=== PATIENT | female | born 1950 | race Caucasian/White ===

== ENCOUNTER 2024-09-11 12:56 | Outpatient (AMB) | payer MEDICARE, MEDICAID, SELFPAY ==
--- NOTE | 2024-09-11 12:58 | MHC.OFFVIS ---
Vital Signs 09/11/24 14:00 Height 5 ft 4 in Weight 178 lb 9.191 oz BMI 30.6 BP 158/69 H Blood Pressure Location Lt brachial Position Sitting Pulse 82 Intake Visit Reasons: Remove cuff from subcutaneous tissue Intake Note: Patient is seen in office to discuss removal of cuff. Pt c/o: had catherer removed however cuff was not visible at time and was refer to surgeon, states area is healed and clean Plasterer Foreman Required: Yes Plasterer Foreman Language: Mexican Plasterer Foreman Services: Plasterer Foreman Offered & Declined (Well Service Floor Worker ) Allergies menthol Allergy (Mild, Verified 09/11/24 13:09) chocking Medication List - Last Reconciled 09/11/24 by Tylor Albrecht MD acetaminophen 500 mg PO Q6H PRN allopurinol 100 mg PO DAILY amlodipine 10 mg PO DAILY amoxicillin-pot clavulanate 500-125 mg (Augmentin) 1 tab PO Q12H apixaban 5 mg PO BID apixaban (Eliquis) 5 mg PO BID ascorbic acid (vitamin C) 250 mg PO DAILY aspirin 81 mg PO DAILY blood-glucose meter (Contour Next Gen Meter) As directed blood-glucose,brim cutter,cont ([employer] Installation Engineer) As directed calcium carbonate 500 mg PO DAILY cyanocobalamin (vitamin B-12) 1,000 mcg PO DAILY famotidine 20 mg PO DAILY fluconazole 200 mg PO DAILY magnesium oxide 400 mg PO DAILY metoprolol succinate ER 25 mg PO DAILY pregabalin (Lyrica) 25 mg PO TID rosuvastatin 10 mg PO DAILY torsemide 20 mg PO DAILY valsartan 40 mg PO BID HPI Comments Details: 74-year-old female patient presenting with a retained vascular cuff following removal of a dialysis catheter in the right chest wall. The cuff was described as being palpable below the skin approximately 2 cm above the insertion site. The patient denies any ongoing symptoms related to this cuff and denies any bleeding or discharge from the insertion site. She presents today for removal of this cuff. [facility] Medical History (Updated 09/11/24 @ 14:07 by Tylor Albrecht MD) Vertigo TIA (transient ischemic attack) Paroxysmal atrial fibrillation Hypothyroidism Diabetes mellitus Hypertension End stage renal disease Gout Chronic diastolic congestive heart failure Asthma Anemia Surgical History (Updated 09/11/24 @ 14:06 by Tylor Albrecht MD) History of transmetatarsal amputation of left foot Review of Systems Const Unobtainable due to mental condition Physical Exam Const General: no acute distress Nutritional Appearance: well nourished Orientation/consciousness: patient oriented x3 Limitations: wheelchair Chest Chest/axillae images:  1. Palpable cuff in right chest just above insertion site in the subclavicular location Resp Effort & Inspection: normal respiratory effort GI Inspection: Yes normal to inspection Skin Other: Warm and dry, no rash Neuro General: patient oriented x3 Extrem Other: Wound VAC to left foot Office Procedures Excision Details: Preoperative diagnosis: Retained cuff from dialysis catheter right chest Postoperative diagnosis: Same Procedure: Excision of dialysis cuff right chest wall, 1.5 cm Surgeon: Tylor Albrecht MD Twister Doffer: None Anesthesia: Lidocaine 1% with epinephrine Indications for procedure: As noted above previous dialysis catheter in the right chest, removed without cuff. Operative findings: Adherent cuff to subcutaneous tissue excised through an overlying incision Specimen: None Estimated blood loss: Less than 2 mL Complications: None Procedure details: Patient was brought to the procedure room and kept in her wheelchair. After assuring informed consent, the skin was prepped with Betadine and draped in a sterile fashion. Local anesthesia consisting of lidocaine 1% with epinephrine was then infiltrated directly over the palpable cuff in the right chest wall. An incision was made with a 15 blade directly over the catheter cuff and dissection continued down to the cuff wall. This was then grasped with a hemostat and a Metzenbaum scissors used to dissect the cuff from the surrounding subcutaneous tissue. Hemostasis was assured using light pressure. The cuff was removed and discarded. Skin was then closed using interrupted 4-0 Polysorb sutures. This was then covered with Steri-Strips by 2 gauze and Tegaderm. The patient tolerated the procedure well. She was instructed on local wound care. She may remove the Tegaderm in 3 days. She should apply ice to the wound for the 1st 24 hours. 63526-[id number]/arms/legs 1.1-2cm Procedure code (CPT) selection complete Assessment & Plan Assessment & Plan (1) Foreign body (FB) in soft tissue: Code(s): M79.5 - Residual foreign body in soft tissue Category: Medical Plan Patient presents with a retained cuff from a dialysis catheter in the right chest wall presents today for removal. I reviewed the procedure, risks, and alternatives and she consents to the procedure. This was performed with the patient's sitting in the wheelchair. She tolerated the procedure very well in the cuff was easily removed. Wounds were closed with absorbable Polysorb sutures. She was instructed on local wound care and should return as needed for problems. Coding Level of Care Code New Pt Level 4 (15354) Diagnoses Foreign body (FB) in soft tissue M79.5 CPT Codes Trunk/Arms/Legs - CPT: 16922-smluo/arms/legs 1.1-2cm ([id number])
[2024-09-11 14:00] VITALS: BP 158/69; PULSE 82; BMI 30.6
== END 2024-09-11 13:32 | disposition home or self-care (01) ==
LOC: HO.HGS 12:57
PROVIDERS: PCP Physician Assistant; Referring Provider Surgery; Visit Provider Surgery
DX: M79.5 Residual foreign body in soft tissue (principal)
CPT/HCPCS: 10120; 99204

== ENCOUNTER → 2024-09-11 12:56 | Outpatient (BNVA) | payer MEDICARE, MEDICAID, SELFPAY | PROVIDERS: PCP Physician Assistant; Referring Provider Surgery; Visit Provider Surgery | DX: M79.5 Residual foreign body in soft tissue (principal) | CPT/HCPCS: 10120; 99202 ==